=== PATIENT | male | born 1990 ===

== ENCOUNTER 2018-11-10 15:36 | Inpatient (IN) | payer OTHER ==
[2018-11-10] MEDS ORDERED: Labetalol 5mg/ml (4ml) IVP STA ×2 (16:20→18:49)
--- NOTE | 2018-11-10 16:26 | ED PDOC ---
HPI: Hypertension/Hypotension Time Seen by Provider: 11/10/18 15:55 Chief Complaint (Nursing): Abnormal Skin Integrity Additional Complaint(s): Pt is a 28 y/o M with hx of HTN and ESRD on HD presenting to ED with complaints of generalized edema. Reports that he received dialysis yesterday and his brother noticed his face was swollen. He denies any sob, throat itchiness, skin rashes, difficulty swallowing, toothache, headache, blurry vision, numbness/tingling, cp, confusion, palpitations, hematuria or recent illness. States he has been complaint with his HD (last session was yesterday) and his bp medication. PMD: Dr. Myers, [place] PMHX: ESRD< HTN SHx: AVF creation Allergies: Denies any food or drug allergies Social: negative x3 Past Medical History Vital Signs: Last Vital Signs Temp 98.1 F 11/10/18 15:49 Pulse 80 11/10/18 15:49 Resp 16 11/10/18 15:49 BP 217/135 H 11/10/18 15:49 Pulse Ox 98 11/10/18 15:49 - Medical History PMH: HTN - Family History Family History: States: No Known Family Hx - Home Medications Home Medications: Ambulatory Orders Medication Instructions Recorded RX: Atenolol [Tenormin] 50 mg PO MWF 11/10/18 RX: NIFEdipine ER [Procardia XL] 90 mg PO DAILY 11/10/18 - Allergies Allergies/Adverse Reactions: Allergies Allergy/AdvReac Type Severity Reaction Status Date / Time No Known Allergies Allergy Verified 11/10/18 16:10 Review of Systems Constitutional: Negative for: Fever, Chills Eyes: Negative for: Vision Change Cardiovascular: Negative for: Chest Pain, Palpitations Respiratory: Negative for: Cough, Shortness of Breath Gastrointestinal: Negative for: Nausea, Vomiting, Abdominal Pain Genitourinary Male: Negative for: Dysuria Musculoskeletal: Negative for: Neck Pain Neurological: Negative for: Weakness, Numbness, Change in Speech, Confusion Psych: Negative for: Anxiety Physical Exam - Physical Exam Appears: Positive for: No Acute Distress (Comfortable appearing male, seen lying in bed w/o distress, cooeprative with exam; noted to have mild generalized edema of face, arms, and lower extremities) Head Exam: Positive for: ATRAUMATIC Skin: Positive for: Normal Color Eye Exam: Positive for: Normal appearance, EOMI, PERRL ENT: Positive for: Normal ENT Inspection. Negative for: Pharyngeal Erythema, Tonsillar Swelling Neck: Positive for: Normal, Painless ROM, Supple Cardiovascular/Chest: Positive for: Regular Rate, Rhythm. Negative for: Chest Non Tender, JVD Respiratory: Positive for: Normal Breath Sounds. Negative for: Decreased Breath Sounds, Accessory Muscle Use, Crackles, Rales, Wheezing, Respiratory Distress Gastrointestinal/Abdominal: Positive for: Normal Exam, Bowel Sounds, Soft. Negative for: Tenderness Extremity: Positive for: Pedal Edema (+1 pitting up to ankles) Neurologic/Psych: Positive for: Alert, fan mail editor II-XII, Oriented. Negative for: Motor/Sensory Deficits, Facial Droop - Laboratory Results Result Diagrams: 11/10/18 16:41 11/10/18 16:41 - ECG O2 Sat by Pulse Oximetry: 98 Medical Decision Making Medical Decision Making: Pt with ESRD presenting with generalized edema and elevated BP. Need to rule out HTN emergency. Generalized edema likely due to underlying kidney disease and associated nephropathy. No concerning features on exam. EKG- no ischemic changes or peaked t waves Troponin- neagtive x1 CBC BMP- K 6.0, Crea 6.8 (no prior baseline studies) Labatelol 10mg IV Insulin 10IV, D50, Bicarb, Albuterol 5, and Kayexelate Nephrology Consulted- Dr. Spence Pt endorsed to Dr. Bowser Disposition - Clinical Impression Clinical Impression: Hyperkalemia, ESRD (end stage renal disease), Hypertensive urgency - Patient ED Disposition Is Patient to be Admitted: Yes - Disposition Disposition Time: 19:00 Condition: FAIR
[2018-11-10] MEDS ORDERED: Labetalol 5mg/ml (4ml) ONE ×2 (16:28→18:52)
[2018-11-10 16:44] LABS: HEMOGLOBIN 10.8 g/dL (12.0-18.0); MEAN CELL VOLUME 89.7 fl (80.0-94.0); MEAN CORPUSCULAR HEMOGLOBIN 28.1 pg (27.0-31.0); MEAN CORPUSCULAR HGB CONC 31.3 g/dL (33.0-37.0); RBC 3.84 Mil/uL (4.40-5.90); RED CELL DISTRIBUTION WIDTH 17.3 % (11.5-14.5); WHITE BLOOD COUNT 8.6 K/uL (4.8-10.8)
[2018-11-10 16:55] LABS: CALCIUM 9.5 mg/dL (8.4-10.2)
[2018-11-10] MEDS ORDERED: Dextrose 50% SYRINGE Inj (50 ml) IVP ONE (17:03)
[2018-11-10] MEDS ORDERED: Sodium Bicarbonate 7.5% (0.9 MEQ/ML) 50ML INJ IV ONE (17:03)
[2018-11-10] MEDS ORDERED: Albuterol 0.083% Inhal Sol (2.5 mg/3 mL) UD INH STA (17:03)
[2018-11-10] MEDS ORDERED: Insulin Regular 100 units/ml IV ONE (17:04)
[2018-11-10 17:06] LABS: TROPONIN I 0.016 ng/mL (0.00-0.120)
[2018-11-10] MEDS ORDERED: Albuterol 0.083% Inhal Sol (2.5 mg/3 mL) UD ONE (17:15)
[2018-11-10] MEDS ORDERED: Dextrose 50% SYRINGE Inj (50 ml) ONE (17:15)
[2018-11-10] MEDS ORDERED: Insulin Regular 100 units/ml ONE (17:15)
[2018-11-10] MEDS ORDERED: Sodium Bicarbonate (8.4%) 50 Meq Syringe IV ONE (17:30)
[2018-11-10] MEDS ORDERED: Sodium Bicarbonate (8.4%) 50 Meq Syringe ONE (17:44)
[2018-11-10] MEDS ORDERED: NIFEdipine 90 mg ER Tab PO STA (20:28)
[2018-11-10] MEDS ORDERED: Nicardipine 20 MG/200 ML 20 MG/200 ML BAG IV ONE (23:46)
--- NOTE | 2018-11-11 00:24 | CP.PCM.HP ---
History of Present Illness - History of Present Illness History of Present Illness: 28 yo M with hx of HTN and ESRD on HD M/W/, presented to ED with concern of swelling of his face when he drinks water over the course of 1 mo. Patient states that swelling is not present all the time and does away after dialysis. He states he is compliant with his antihypertensive medications and adherent to HD schedule; goes to [facility] on [address] in [place]; reports that he had HD yesterday. Reports that his systolic blood pressure normally runs in 170s and he is unsure of diastolic value; refers to them as "top and bottom" numbers. He denied specific discomfort; denied headache, dizziness, blurred vision, weakness, shortness of breath, chest pain, abdominal pain, diarrhea, constipation, dysuria (able to make small amounts of urine), throat pain, rashes, difficulty swallowing, toothache, numbness/tingling, recent illness. 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 Mcclellan, [place] Past Med hx: ESRD, HTN Past Surg hx: AVF creation Social hx: former heavy smoker and drinker (prior to HD initiation 4 yrs ago), denies current use; no drug use Allergies: NKA Medications: Atenolol 50 mg MWF, Nifedipine ER 90 mg QHS; does not appear to be on any renal supplement medications In ED, was found to have BP 217/135 at triage. Other vitals: HR 76, RR 21, O2 sat 96% on room air, afebrile. On CMP, hyperkalemia with K of 6.0, BUN 55, Cr 6.8. Received total of: Labetalol 10mg IV x 2 Hydralazine 10 IV mg x1 Atenolol 50 mg PO x1 Nidfedipine ER PO 90 mg x1 10U insulin IV x1 5 mg albuterol INH Kayexalate 30 gm PO x1 Sodium Bicarb 50mEq IV x1 EKG- no ischemic changes or peaked t waves Troponin- negative x1 BP remained high; when seen in ED around 23:45, BP was still 185/116. Nifedipine drip ordered at 5 mg/hr Upgraded to ICU admission Present on Admission - Present on Admission Any Indicators Present on Admission: No Past Patient History - Past Social History Smoking Status: Never Smoked - CARDIAC Hx Hypertension: Yes - RENAL Hx Dialysis: Yes Date of Last Dialysis Treatment: 11/09/18 - PSYCHIATRIC Hx Substance Use: No - SURGICAL HISTORY Hx Surgeries: Yes Hx Arteriovenous Shunt: Yes - ANESTHESIA Hx Anesthesia: Yes Hx Anesthesia Reactions: No Meds Allergies/Adverse Reactions: Allergies Allergy/AdvReac Type Severity Reaction Status Date / Time No Known Allergies Allergy Verified 11/10/18 16:10 Physical Exam - Constitutional Appears: Non-toxic, No Acute Distress - Head Exam Head Exam: NORMAL INSPECTION - Eye Exam Eye Exam: Normal appearance - Neck Exam Neck exam: Positive for: Full Rom - Respiratory Exam Respiratory Exam: Clear to Auscultation Bilateral, NORMAL BREATHING PATTERN. absent: Wheezes, Respiratory Distress - Cardiovascular Exam Cardiovascular Exam: REGULAR RHYTHM, +S1, +S2 - GI/Abdominal Exam GI & Abdominal Exam: Normal Bowel Sounds, Soft - Extremities Exam Extremities exam: Negative for: calf tenderness, pedal edema Additional comments: LUE AV fistula; palpable thrill - Back Exam Back exam: NORMAL INSPECTION - Neurological Exam Neurological exam: Alert, Oriented x3 - Psychiatric Exam Psychiatric exam: Normal Affect, Normal Mood - Skin Skin Exam: Dry, Normal Color, Warm - Additional Findings Additional findings: no marked edema noted on exam Results - Vital Signs Recent Vital Signs: Last Vital Signs Temp 98.8 F 11/10/18 21:36 Pulse 77 11/10/18 21:36 Resp 20 11/10/18 21:36 BP 164/111 H 11/10/18 21:36 Pulse Ox 97 11/10/18 21:36 - Labs Result Diagrams: 11/10/18 16:41 11/11/18 00:40 Labs: Laboratory Results - last 24 hr 11/10/18 11/10/18 16:41 16:41 WBC 8.6 RBC 3.84 L Hgb 10.8 L Hct 34.5 L MCV 89.7 MCH 28.1 MCHC 31.3 L RDW 17.3 H Plt Count 184 Sodium 139 Potassium 6.0 H Chloride 91 L Carbon Dioxide 30 Anion Gap 24 H BUN 55 H Creatinine 6.8 H Est GFR ( Amer) 12 Est GFR (Non-Af Amer) 10 Random Glucose 78 Calcium 9.5 Troponin I 0.0160 Assessment & Plan - Assessment and Plan (Free Text) Assessment: 28 yo M with ESRD (HD M,W,F) and hypertension who presented to ED with concern f or edema; admitted for uncontrolled BP despite treatment with multiple IV and PO agents (labetalol, nifedipine, atenolol, hydralazine) and hyperkalemia. Plan: Hypertension - Uncontrolled - Nicardipine drip started at 5 mg/hr, upgraded to ICU obs; goal 25% reduction in BP at this time - Continuous monitoring of BP - Resume home meds nifedipine and atenolol Hyperkalemia - s/p 30 gm kayexalate and 50 mEq sodium bicarb - Repeat BMP now and in am - Due for HD tomorrow ESRD - HD MWF, due for HD tomorrow - Dr. Spence, nephro consulted Diet - Renal dialysis diet DVT Prophylaxis - SCD for now Pt seen/discussed with Dr. Starkey.
[2018-11-11] MEDS ORDERED: Nicardipine 20 MG/200 ML 20 MG/200 ML BAG ONE (00:28)
[2018-11-11 01:07] LABS: CALCIUM 9.5 mg/dL (8.4-10.2)
[2018-11-11 05:26] LABS: HEMOGLOBIN 10.3 g/dL (12.0-18.0); MEAN CELL VOLUME 88.4 fl (80.0-94.0); MEAN CORPUSCULAR HEMOGLOBIN 28.4 pg (27.0-31.0); MEAN CORPUSCULAR HGB CONC 32.2 g/dL (33.0-37.0); RBC 3.62 Mil/uL (4.40-5.90); RED CELL DISTRIBUTION WIDTH 17.7 % (11.5-14.5); WHITE BLOOD COUNT 10.4 K/uL (4.8-10.8)
[2018-11-11 05:52] LABS: CALCIUM 9.7 mg/dL (8.4-10.2)
--- NOTE | 2018-11-11 08:03 | CP.PCM.CON ---
History of Present Illness - History of Present Illness History of Present Illness: This 28 years of age male presented to the emergency room complaining of leg swollen and swollen of his face and he noted that he is retaining water. Patient had dialysis on Friday as noted in the medical record and the patient stated so. And has been on dialysis for about 4 years. The patient has history of hypertension and he has been receiving dialysis 3 times a week Friday. And in the emergency room blood pressure systolic was around over 200 and emergency room management noted and potassium was elevated and he was given multiple medication for hyperkalemia Emergency room management and past medical history as noted as follow In ED, was found to have BP 217/135 at triage. Other vitals: HR 76, RR 21, O2 sat 96% on room air, afebrile. On CMP, hyperkalemia with K of 6.0, BUN 55, Cr 6.8. Received total of: Labetalol 10mg IV x 2 Hydralazine 10 IV mg x1 Atenolol 50 mg PO x1 Nidfedipine ER PO 90 mg x1 10U insulin IV x1 5 mg albuterol INH Kayexalate 30 gm PO x1 Sodium Bicarb 50mEq IV x1 EKG- no ischemic changes or peaked t waves Troponin- negative x1 Review of Systems - Constitutional Constitutional: Weakness. absent: Anorexia, Chills - EENT Nose/Mouth/Throat: absent: Nasal Discharge - Cardiovascular Cardiovascular: Dyspnea on Exertion, Edema, Leg Edema. absent: Chest Pain - Gastrointestinal Gastrointestinal: absent: Abdominal Pain, Coffee Ground Emesis, Nausea - Genitourinary Genitourinary: Nocturia - Musculoskeletal Musculoskeletal: Muscle Weakness. absent: Numbness - Neurological Neurological: Weakness. absent: Confusion, Focal Weakness, Headaches - Endocrine Endocrine: Fatigue - Hematologic/Lymphatic Hematologic: absent: Easy Bleeding Past Patient History - Past Medical History & Family History Past Medical History?: Yes - Past Social History Smoking Status: Never Smoked - CARDIAC Hx Hypertension: Yes - PULMONARY Hx Respiratory Disorders: No - NEUROLOGICAL Hx Neurological Disorder: No - HEENT Hx HEENT Problems: No - RENAL Hx Dialysis: Yes Date of Last Dialysis Treatment: 11/09/18 - ENDOCRINE/METABOLIC Hx Endocrine Disorders: No - HEMATOLOGICAL/ONCOLOGICAL Hx Blood Disorders: No Hx AIDS: No Hx Human Immunodeficiency Virus (HIV): No - INTEGUMENTARY Hx Dermatological Problems: No - MUSCULOSKELETAL/RHEUMATOLOGICAL Hx Musculoskeletal Disorders: No Hx Falls: No - GASTROINTESTINAL Hx Gastrointestinal Disorders: No - GENITOURINARY/GYNECOLOGICAL Hx Genitourinary Disorders: No - PSYCHIATRIC Hx Substance Use: No - SURGICAL HISTORY Hx Surgeries: Yes Hx Arteriovenous Shunt: Yes - ANESTHESIA Hx Anesthesia: Yes Hx Anesthesia Reactions: No Meds Allergies/Adverse Reactions: Allergies Allergy/AdvReac Type Severity Reaction Status Date / Time No Known Allergies Allergy Verified 11/10/18 16:10 - Medications Medications: Current Medications Atenolol (Tenormin) 50 mg PO MWF [facility] Nifedipine (Procardia Xl) 90 mg PO DAILY@2100 [facility] Physical Exam - Constitutional Appears: No Acute Distress - Eye Exam Eye Exam: Conjunctival injection - ENT Exam ENT Exam: Mucous Membranes Moist - Neck Exam Neck exam: Negative for: Lymphadenopathy - Respiratory Exam Respiratory Exam: Rhonchi, NORMAL BREATHING PATTERN - Cardiovascular Exam Cardiovascular Exam: REGULAR RHYTHM. absent: Gallop, JVD, Rubs - GI/Abdominal Exam GI & Abdominal Exam: Normal Bowel Sounds. absent: Guarding - Extremities Exam Extremities exam: Negative for: calf tenderness - Back Exam Back exam: absent: CVA tenderness (L), CVA tenderness (R) - Neurological Exam Neurological exam: Alert - Psychiatric Exam Psychiatric exam: Normal Affect Results - Vital Signs Recent Vital Signs: Last Vital Signs Temp 98.2 F 11/11/18 05:00 Pulse 64 11/11/18 07:00 Resp 20 11/11/18 07:00 BP 132/89 11/11/18 07:00 Pulse Ox 94 L 11/11/18 07:00 - Labs Result Diagrams: 11/11/18 04:35 11/11/18 04:35 Labs: Laboratory Results - last 24 hr 11/10/18 11/10/18 11/11/18 16:41 16:41 00:40 WBC 8.6 RBC 3.84 L Hgb 10.8 L Hct 34.5 L MCV 89.7 MCH 28.1 MCHC 31.3 L RDW 17.3 H Plt Count 184 Sodium 139 138 Potassium 6.0 H 5.8 H Chloride 91 L 90 L Carbon Dioxide 30 28 Anion Gap 24 H 26 H BUN 55 H 60 H Creatinine 6.8 H 8.1 H* Est GFR ( Amer) 12 9 Est GFR (Non-Af Amer) 10 8 Random Glucose 78 88 Calcium 9.5 9.5 Troponin I 0.0160 11/11/18 11/11/18 04:35 04:35 WBC 10.4 RBC 3.62 L Hgb 10.3 L Hct 32.0 L MCV 88.4 MCH 28.4 MCHC 32.2 L RDW 17.7 H Plt Count 201 Sodium 137 Potassium 5.9 H Chloride 90 L Carbon Dioxide 30 Anion Gap 23 H BUN 64 H Creatinine 8.4 H* Est GFR ( Amer) 9 Est GFR (Non-Af Amer) 8 Random Glucose 83 Calcium 9.7 Troponin I Assessment & Plan (1) ESRD (end stage renal disease) Assessment and Plan: Patient with end-stage renal disease for 4 years Hypertension Hyperkalemia Volume overloaded History of hyperphosphatemia History of secondary hyperparathyroidism Recommendation Urgent hemodialysis To get serum phosphorus and PTH level Diet instruction for compliance with the fluid Renal diet Phosphorus binder EPO for the anemia Status: Acute (2) Hyperkalemia Status: Acute (3) Hypertensive urgency Status: Acute
--- NOTE | 2018-11-11 08:36 | RAD ---
Date of service: 11/11/2018 PROCEDURE: CHEST RADIOGRAPH, 1 VIEW HISTORY: smoker COMPARISON: 09/23/2011 chest x-ray. No report is available. FINDINGS: LUNGS: Compared to the prior study the coalescent airspace opacities inferred as coalescent areas of pulmonary edema and/or coalescing pneumonia have cleared. Interval change in the appearance of the right hemithorax now with homogeneous ground-glass opacity present additional patchy areas of concomitant airspace opacity right upper lobe. An interval right pleural effusion-possibly in part loculated is noted. Right basal inferred compressive atelectasis with or without infiltrate noted. Minimal fluid and/or thickening in the fissure. PLEURA: No pneumothorax seen. Right pleural effusion as above. CARDIOVASCULAR: There is presence of aortic atherosclerotic calcification on x-ray. Mild cardiomegaly.-similar-appearing. Central pulmonary venous congestion also suspect. OSSEOUS STRUCTURES: No significant abnormalities. VISUALIZED UPPER ABDOMEN: Normal. OTHER FINDINGS: None. IMPRESSION: Interval changes as above. Currently the pathology is accentuated in the right hemithorax where right pleural effusion and inferred right basal compressive atelectasis (with or without infiltrate) is suggested. Right pleural effusion probably has some loculated components to it which is an interval change. Other findings as above. Comments: Study marked for PA review .
--- NOTE | 2018-11-11 09:58 | CARD ---
APPROVED REPORT Date of service: 11/10/2018 EKG Measurement Heart [id number] <Conclusion> Normal sinus rhythm Normal Electrocardiogram
--- NOTE | 2018-11-11 10:36 | CP.PCM.PN ---
Subjective - Date & Time of Evaluation Date of Evaluation: 11/11/18 Time of Evaluation: 10:34 - Subjective Subjective: Dialysis note He was seen on hemodialysis after 1 hour plus Patient appears to be comfortable on hemodialysis Vital signs noted to be stable I discussed the dialysis order with the dialysis nurse at the bedside Decreasing shortness of breath Objective - Vital Signs/Intake and Output Vital Signs (last 24 hours): Temp Pulse Resp BP Pulse Ox 98.7 F 69 24 143/92 H 95 11/11/18 08:00 11/11/18 09:00 11/11/18 09:00 11/11/18 09:00 11/11/18 09:00 Intake and Output: 11/11/18 11/11/18 06:59 18:59 Intake Total 60 Balance 60 - Medications Medications: Current Medications Atenolol (Tenormin) 50 mg PO MWF [facility] Nifedipine (Procardia Xl) 90 mg PO DAILY@2100 RYDER - Labs Labs: 11/11/18 04:35 11/11/18 04:35 - Constitutional Appears: No Acute Distress - Eye Exam Eye Exam: Conjunctival injection - ENT Exam ENT Exam: Mucous Membranes Moist - Neck Exam Neck Exam: absent: Lymphadenopathy - Cardiovascular Exam Cardiovascular Exam: REGULAR RHYTHM. absent: Gallop - GI/Abdominal Exam GI & Abdominal Exam: Soft, Normal Bowel Sounds - Extremities Exam Extremities Exam: absent: Calf Tenderness - Back Exam Back Exam: absent: CVA tenderness (L), CVA tenderness (R) - Neurological Exam Neurological Exam: Alert - Psychiatric Exam Psychiatric exam: Anxious - Skin Skin Exam: absent: Cyanosis Assessment and Plan (1) ESRD (end stage renal disease) Assessment & Plan: End-stage renal disease Volume overloaded Hypertension Hemodialysis ongoing with ultrafiltration up to about 3000 cc if tolerated Consent was taken and discussed with the dialysis nurse at the bedside patient is stable Status: Acute (2) Hyperkalemia Status: Acute (3) Hypertensive urgency Status: Acute
--- NOTE | 2018-11-11 12:40 | CP.PCM.PN ---
Objective - Vital Signs/Intake and Output Vital Signs (last 24 hours): Temp Pulse Resp BP Pulse Ox 98.3 F 72 24 164/100 H 96 11/11/18 12:00 11/11/18 12:36 11/11/18 12:00 11/11/18 12:36 11/11/18 12:00 Intake and Output: 11/11/18 11/11/18 06:59 18:59 Intake Total 60 Balance 60 - Medications Medications: Current Medications Atenolol (Tenormin) 50 [place] [facility] [place] Admin: 11/11/18 12:36 Dose: 50 mg Nifedipine (Procardia Xl) 90 mg PO DAILY@2100 [facility] - Labs Labs: 11/11/18 04:35 11/11/18 04:35
[2018-11-11 13:18] LABS: INR 1.3; PROTHROMBIN TIME 14.6 Seconds (9.8-13.1)
[2018-11-11 13:49] LABS: HEPATITIS B SURFACE AG Negative (NEGATIVE)
[2018-11-11 13:54] LABS: HEPATITIS B CORE AB NEGATIVE (NEGATIVE)
[2018-11-11 14:07] LABS: HEPATITIS C ANTIBODY NEGATIVE (NEGATIVE)
[2018-11-11] MEDS ORDERED: Lidocaine 1% Inj (20ml) ONE (14:10)
--- NOTE | 2018-11-11 14:14 | CT ---
Date of service: 11/11/2018 PROCEDURE: CT Chest without contrast HISTORY: large pleural effusion COMPARISON: 09/22/2011 TECHNIQUE: Contiguous axial images were obtained through the chest without intravenous contrast enhancement. Sagittal and coronal reconstructions were performed. Radiation dose (DLP): 190.64 mGy-cm. This CT exam was performed using one or more of the following dose reduction techniques: Automated exposure control, adjustment of the mA and/or kV according to patient size, and/or use of iterative reconstruction technique. FINDINGS: LUNGS: No pulmonary infiltrate. Right upper lobe and right lower lobe segmental/subsegmental atelectasis secondary to large pleural effusion. Minimal linear scar/atelectasis in left lower lobe. Trace left pleural effusion. No pneumothorax. MEDIASTINUM: Unremarkable thoracic aorta. No aneurysm. Normal sized heart. Main pulmonary artery unremarkable. No vascular congestion. No lymphadenopathy. No aortic atherosclerotic calcification or mural plaque present. PLEURA: No pleural fluid. No pneumothorax. BONES: No fracture. No destructive lesion. UPPER ABDOMEN: Mild ascites OTHER FINDINGS: None. IMPRESSION: Large right pleural effusion and trace left pleural effusion. Mild ascites. Right upper and lower lobe segmental/subsegmental atelectasis. No pulmonary infiltrate.
--- NOTE | 2018-11-11 14:20 | PCM.SURG1 ---
Surgeon's Initial Post Op Note - Surgeon's Notes Surgeon: Anibal Burnette MD Reeling And Tubing Machine Operator: NONE Type of Anesthesia: Local Pre-Operative Diagnosis: Right pleural effusion Operative Findings: US showed a large right effusion Post-Operative Diagnosis: Right pleural effusion Operation Performed: US guided right thoracentesis Specimen/Specimens Removed: 1100 cc of yellow fluid Estimated Blood Loss: EBL {In ML}: 0 Blood Products Given: N/A Drains Used: No Drains Post-Op Condition: Fair Date of Surgery/Procedure: 11/11/18 Time of Surgery/Procedure: 14:15
--- NOTE | 2018-11-11 14:39 | CT ---
PROCEDURE: Date of procedure: 11/11/2018 Procedure: 1. Ultrasound-guided Right thoracentesis, CPT 34953 Medications: 6cc 1% Lidocaine HISTORY: Right pleural effusion, shortness of breath TECHNIQUE: Following informed consent ,the Patients' right chest was marked. Procedure time-out was called, and the patient was placed in the sitting position and limited ultrasound showed a large right effusion. The patient's right back was prepped and draped in the usual sterile fashion. After the skin was anesthetized with lidocaine, a drainage catheter was advanced under ultrasound guidance into the pleural space. Ultrasound-guided thoracentesis was performed. A total of 1100 cubic centimeters of straw-colored fluid removed without complication. A Xeroform dressing was applied. IMPRESSION: Ultrasound guided Right thoracentesis. There were no immediate complications.
[2018-11-11 15:12] LABS: BODY FLUID TYPE PLEURAL/THORACENTESI
[2018-11-11 15:33] LABS: BF GROSS APPEARANCE CLEAR (CLEAR)
--- NOTE | 2018-11-11 15:40 | CP.CCUPN ---
CCU Subjective - Physician Review Events Since Last Encounter (Free Text): 11/11/18 15:31 alert and oriented, no complaints. CCU Objective - Vital Signs / Intake & Output Vital Signs (Last 4 hours): Vital Signs Temp Pulse Resp BP Pulse Ox 11/11/18 14:26 97.6 F 64 20 152/100 H 94 L 11/11/18 12:36 72 164/100 H 11/11/18 12:00 98.3 F 66 24 167/103 H 96 Intake and Output (Last 8hrs): Intake & Output 11/11/18 11/11/18 11/11/18 06:59 14:59 22:59 Intake Total 60 Balance 60 Weight 118 lb Intake: IV 0 Oral 60 - Physical Exam Head: Positive for: Atraumatic, Normocephalic Pupils: Positive for: PERRL Extroacular Muscles: Positive for: EOMI Conjunctiva: Positive for: Normal Mouth: Positive for: Moist Mucous Membranes Neck: Positive for: Normal Range of Motion Respiratory/Chest: Positive for: Clear to Auscultation, Good Air Exchange Cardiovascular: Positive for: Regular Rate and Rhythm Abdomen: Negative for: Tenderness, Distention, Normal Bowel Sounds Neurological: Positive for: GCS=15, CN II-XII Intact, Speech Normal Psychiatric: Positive for: Alert, Oriented x 3 - Medications Active Medications: Active Medications Generic Name Dose Route Start Last Admin Trade Name Freq PRN Reason Stop Dose Admin Atenolol 50 mg 11/11/18 09:00 11/11/18 12:36 Tenormin PO 50 mg MWF [facility] Administration Nifedipine 90 mg 11/11/18 21:00 Procardia Xl PO DAILY@2100 [facility] Sevelamer HCl 800 mg 11/11/18 13:00 11/11/18 13:09 Renagel PO Not Given TID RYDER - Patient Studies Lab Studies: Lab Studies 11/11/18 11/11/18 11/11/18 Range/Units 15:00 12:56 09:11 WBC (4.8-10.8) K/uL RBC (4.40-5.90) Mil/uL Hgb (12.0-18.0) g/dL Hct (35.0-51.0) % MCV (80.0-94.0) fl MCH (27.0-31.0) pg MCHC (33.0-37.0) g/dL RDW (11.5-14.5) % Plt Count (130-400) K/uL PT 14.6 H (9.8-13.1) Seconds INR 1.3 Sodium (132-148) mmol/l Potassium (3.6-5.0) MMOL/L Chloride (98-107) mmol/L Carbon Dioxide (22-30) mmol/L Anion Gap (10-20) BUN (9-20) mg/dl Creatinine (0.8-1.5) mg/dl Est GFR ( Amer) Est GFR (Non-Af Amer) Random Glucose (75-110) mg/dL Calcium (8.4-10.2) mg/dL Phosphorus (2.5-4.5) mg/dl Magnesium (1.6-2.3) MG/DL Troponin I (0.00-0.120) ng/mL Fluid Source Pleural/thoracentesi Hep Bs Antigen (NEGATIVE) Hep Bs Antibody Positive (NEGATIVE) Hep B Core IgM Ab (NEGATIVE) Hepatitis C Antibody (NEGATIVE) 11/11/18 11/11/18 11/11/18 Range/Units 09:11 04:35 04:35 WBC 10.4 (4.8-10.8) K/uL RBC 3.62 L (4.40-5.90) Mil/uL Hgb 10.3 L (12.0-18.0) g/dL Hct 32.0 L (35.0-51.0) % MCV 88.4 (80.0-94.0) fl MCH 28.4 (27.0-31.0) pg MCHC 32.2 L (33.0-37.0) g/dL RDW 17.7 H (11.5-14.5) % Plt Count 201 (130-400) K/uL PT (9.8-13.1) Seconds INR Sodium 137 (132-148) mmol/l Potassium 5.9 H (3.6-5.0) MMOL/L Chloride 90 L (98-107) mmol/L Carbon Dioxide 30 (22-30) mmol/L Anion Gap 23 H (10-20) BUN 64 H (9-20) mg/dl Creatinine 8.4 H* (0.8-1.5) mg/dl Est GFR ( Amer) 9 Est GFR (Non-Af Amer) 8 Random Glucose 83 (75-110) mg/dL Calcium 9.7 (8.4-10.2) mg/dL Phosphorus 6.5 H (2.5-4.5) mg/dl Magnesium 2.3 (1.6-2.3) MG/DL Troponin I (0.00-0.120) ng/mL Fluid Source Hep Bs Antigen Negative (NEGATIVE) Hep Bs Antibody (NEGATIVE) Hep B Core IgM Ab Negative (NEGATIVE) Hepatitis C Antibody Negative (NEGATIVE) 11/11/18 11/10/18 11/10/18 Range/Units 00:40 16:41 16:41 WBC 8.6 (4.8-10.8) K/uL RBC 3.84 L (4.40-5.90) Mil/uL Hgb 10.8 L (12.0-18.0) g/dL Hct 34.5 L (35.0-51.0) % MCV 89.7 (80.0-94.0) fl MCH 28.1 (27.0-31.0) pg MCHC 31.3 L (33.0-37.0) g/dL RDW 17.3 H (11.5-14.5) % Plt Count 184 (130-400) K/uL PT (9.8-13.1) Seconds INR Sodium 138 139 (132-148) mmol/l Potassium 5.8 H 6.0 H (3.6-5.0) MMOL/L Chloride 90 L 91 L (98-107) mmol/L Carbon Dioxide 28 30 (22-30) mmol/L Anion Gap 26 H 24 H (10-20) BUN 60 H 55 H (9-20) mg/dl Creatinine 8.1 H* 6.8 H (0.8-1.5) mg/dl Est GFR ( Amer) 9 12 Est GFR (Non-Af Amer) 8 10 Random Glucose 88 78 (75-110) mg/dL Calcium 9.5 9.5 (8.4-10.2) mg/dL Phosphorus (2.5-4.5) mg/dl Magnesium (1.6-2.3) MG/DL Troponin I 0.0160 (0.00-0.120) ng/mL Fluid Source Hep Bs Antigen (NEGATIVE) Hep Bs Antibody (NEGATIVE) Hep B Core IgM Ab (NEGATIVE) Hepatitis C Antibody (NEGATIVE) Laboratory Results - last 24 hr 11/10/18 11/10/18 11/11/18 16:41 16:41 00:40 WBC 8.6 RBC 3.84 L Hgb 10.8 L Hct 34.5 L MCV 89.7 MCH 28.1 MCHC 31.3 L RDW 17.3 H Plt Count 184 PT INR Sodium 139 138 Potassium 6.0 H 5.8 H Chloride 91 L 90 L Carbon Dioxide 30 28 Anion Gap 24 H 26 H BUN 55 H 60 H Creatinine 6.8 H 8.1 H* Est GFR ( Amer) 12 9 Est GFR (Non-Af Amer) 10 8 Random Glucose 78 88 Calcium 9.5 9.5 Phosphorus Magnesium Troponin I 0.0160 Fluid Source Hep Bs Antigen Hep Bs Antibody Hep B Core IgM Ab Hepatitis C Antibody 11/11/18 11/11/18 11/11/18 04:35 04:35 09:11 WBC 10.4 RBC 3.62 L Hgb 10.3 L Hct 32.0 L MCV 88.4 MCH 28.4 MCHC 32.2 L RDW 17.7 H Plt Count 201 PT INR Sodium 137 Potassium 5.9 H Chloride 90 L Carbon Dioxide 30 Anion Gap 23 H BUN 64 H Creatinine 8.4 H* Est GFR ( Amer) 9 Est GFR (Non-Af Amer) 8 Random Glucose 83 Calcium 9.7 Phosphorus 6.5 H Magnesium 2.3 Troponin I Fluid Source Hep Bs Antigen Negative Hep Bs Antibody Hep B Core IgM Ab Negative Hepatitis C Antibody Negative 11/11/18 11/11/18 11/11/18 09:11 12:56 15:00 WBC RBC Hgb Hct MCV MCH MCHC RDW Plt Count PT 14.6 H INR 1.3 Sodium Potassium Chloride Carbon Dioxide Anion Gap BUN Creatinine Est GFR ( Amer) Est GFR (Non-Af Amer) Random Glucose Calcium Phosphorus Magnesium Troponin I Fluid Source Pleural/thoracentesi Hep Bs Antigen Hep Bs Antibody Positive Hep B Core IgM Ab Hepatitis C Antibody Radiology Impressions: Radiology Impressions Chest X-Ray 11/11/18 07:44 IMPRESSION: Interval changes as above. Currently the pathology is accentuated in the right hemithorax where right pleural effusion and inferred right basal compressive atelectasis (with or without infiltrate) is suggested. Right pleural effusion probably has some loculated components to it which is an interval change. Other findings as above. Comments: Study marked for PA review . Chest CT 11/11/18 12:34 IMPRESSION: Large right pleural effusion and trace left pleural effusion. Mild ascites. Right upper and lower lobe segmental/subsegmental atelectasis. No pulmonary infiltrate. Interventional Procedure 11/11/18 12:36 IMPRESSION: Ultrasound guided Right thoracentesis. There were no immediate complications. Review of Systems - Review of Systems All systems: reviewed and no additional remarkable complaints except (no complaints) Critical Care Progress Note - Nutrition Nutrition: Nutrition Category Date Time Status Renal Diet [DIET] Diets 11/11/18 Breakfast Active Assessment/Plan (1) ESRD (end stage renal disease) Assessment and plan: 28yo M. PMHx ESRD (HD M,W,F) and hypertension who presented to ED with concern for edema; admitted for uncontrolled BP despite treatment with multiple IV and PO agents (labetalol, nifedipine, atenolol, hydralazine) and hyperkalemia. Neuro: alert and oriented. Patient's liver size and drinking history is indicative of etoh abuse, at risk for withdrawal, will monitor. Pulm: no acute issues, breathing spontaneously on room air. 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 CV: hemodynamically stable. patient's edema and facial swelling could be fluid overload from excess drinking or a side effect of his calcium channel jennifer, will monitor. Hem: anemia of chronic disease Renal: ESRD on HD (MWF), got dialyzed today, 2.5L removed. Endo: no acute issues. GI: renal diet ID: no acute issues. monitor for pneumonia, as patient has remaining atelectatic lung s/p thoracentesis. DVT proph - heparin sq GI proph - not currently indicated Code status - full code Critical Care time spent 35 minutes Multi-disciplinary rounds were performed with house staff, nursing, speech t herapy, respiratory therapy, pharmacy and nutrition with integrated input from the primary team/attending and other consulting services. The documented time is cumulative and includes review of patient data/exams/labs/chart review and examination of the patient on rounds and throughout the day; time is exclusive of any procedures or teaching time. Current Visit: No Status: Acute
[2018-11-11 16:03] LABS: BODY FLUID MONO/MACROPHAGE 17 % (0-0); BODY FLUID TOTAL COUNT 100 (0-0)
[2018-11-11 16:51] LABS: TOTAL PROTEIN,BODY FLUID 2.6 g/dL (NONE ESTABLISHED)
--- NOTE | 2018-11-11 17:08 | RAD ---
Date of service: 11/11/2018 PROCEDURE: CHEST RADIOGRAPH, 1 VIEW HISTORY: Status post right thoracentesis. COMPARISON: 11/11/2018 at 7:52 a.m. FINDINGS: LUNGS: Is decreased opacity right upper and lower lung likely due to decrease in extent of dependent pleural fluid seen on prior examination. No acute infiltrate. PLEURA: Small right pleural effusion. No left pleural effusion. No pneumothorax appreciated. Is CARDIOVASCULAR: No aortic atherosclerotic calcification present. Normal. OSSEOUS STRUCTURES: No significant abnormalities. VISUALIZED UPPER ABDOMEN: Normal. OTHER FINDINGS: None. IMPRESSION: Small right pleural effusion. Decreased from earlier examination. No infiltrate.
--- NOTE | 2018-11-11 19:40 | CARD ---
APPROVED REPORT Date of service: 11/11/2018 EXAM: Two-dimensional and M-mode echocardiogram with Doppler and color Doppler. Other Information Quality : ExcellentRhythm : NSR INDICATION RV Failure 2D DIMENSIONS IVSd1.35 (0.7-1.1cm)LVDd4.62 (3.9-5.9cm) LVOT Diameter1.64 (1.8-2.4cm)PWd1.52 (0.7-1.1cm) IVSs1.73 (0.8-1.2cm)LVDs3.32 (2.5-4.0cm) FS (%) 28.3 %PWs1.78 (0.8-1.2cm) M-Mode DIMENSIONS Left Atrium (MM)4.60 (2.5-4.0cm)IVSd1.35 (0.7-1.1cm) Aortic Root2.70 (2.2-3.7cm)LVDd4.33 (4.0-5.6cm) Aortic Cusp Exc.1.74 (1.5-2.0cm)PWd1.46 (0.7-1.1cm) IVSs1.68 cmFS (%) 21 % LVDs3.42 (2.0-3.8cm)PWs1.68 cm Aortic Valve AoV Peak Lqkrkpbj621.0cm/sAoV VTI28.9cmAO Peak GR.14mmHg LVOT Peak Vgwsyhex292.8cm/sLVOT VTI24.31cmAO Mean GR.8mmHg APRIL (VMAX)1.69ub8JHN (VTI)1.17cm2 Mitral Valve MV E Gjsfrats409.1cm/sMV DECEL [id number] A Ulveolup46.4cm/s MV IJK84stH/A ratio2.0MVA (PHT)4.07cm2 TDI Lateral E' Peak V11.16cm/sMedial E' Peak V5.95cm/sE/Lateral E'9.1 E/Medial E'17.0 Tricuspid Valve TR Peak Vxwugqqo303gm/sRAP [id number] Peak Gr.23mmHg TQUI42rhTt LEFT VENTRICLE The left ventricle is normal size. There is mild concentric left ventricular hypertrophy. The left ventricular systolic function is normal. The estimated ejection fraction is 50-55% No regional wall motion abnormalities noted.. The left ventricular diastolic function is normal. No left ventricle thrombus noted on this study. There is no ventricular septal defect visualized. There is no left ventricular aneurysm. There is no mass noted in the left ventricle. RIGHT VENTRICLE The right ventricle is normal size. There is mild right ventricular hypertrophy. The right ventricular systolic function is normal. ATRIA The left atrium is moderately dilated. The right atrium size is normal. The interatrial septum is intact with no evidence for an atrial septal defect. AORTIC VALVE The aortic valve is normal in structure. No aortic regurgitation is present. There is no aortic valvular stenosis. There is no aortic valvular vegetation. MITRAL VALVE The mitral valve is normal in structure. There is no evidence of mitral valve prolapse. There is no mitral valve stenosis. There is trace mitral valve regurgitation noted. TRICUSPID VALVE The tricuspid valve is normal in structure. There is severe tricuspid valve regurgitation noted. RVSP is likely underestimated at 28 mm Hg. Consider further work up. There is no tricuspid valve prolapse or vegetation. There is no tricuspid valve stenosis. PULMONIC VALVE The pulmonary valve is normal in structure. There is no pulmonic valvular regurgitation. There is no pulmonic valvular stenosis. GREAT VESSELS The aortic root is normal in size. The ascending aorta is normal in size. The pulmonary artery is normal. The IVC is normal in size and collapses >50% with inspiration. PERICARDIAL EFFUSION There is a trace pericardial effusion. There is no pleural effusion. <Conclusion> There is mild concentric left ventricular hypertrophy. The estimated ejection fraction is 50-55% The left ventricular diastolic function is likely normal. There is mild right ventricular hypertrophy. The left atrium is moderately dilated. There is trace mitral valve regurgitation noted. There is severe tricuspid valve regurgitation noted. RVSP is likely underestimated at 28 mm Hg. Consider further work up.
[2018-11-11] MEDS ORDERED: NIFEdipine 90 mg ER Tab PO SCH (21:00)
[2018-11-11 21:13] LABS: HEMOGLOBIN 10.1 g/dL (12.0-18.0); MEAN CELL VOLUME 88.9 fl (80.0-94.0); MEAN CORPUSCULAR HGB CONC 31.5 g/dL (33.0-37.0); RBC 3.61 Mil/uL (4.40-5.90); RED CELL DISTRIBUTION WIDTH 17.5 % (11.5-14.5); WHITE BLOOD COUNT 6.4 K/uL (4.8-10.8)
[2018-11-12 05:31] LABS: HEMOGLOBIN 10.3 g/dL (12.0-18.0); MEAN CELL VOLUME 90.1 fl (80.0-94.0); MEAN CORPUSCULAR HEMOGLOBIN 28.2 pg (27.0-31.0); MEAN CORPUSCULAR HGB CONC 31.3 g/dL (33.0-37.0); RBC 3.63 Mil/uL (4.40-5.90); RED CELL DISTRIBUTION WIDTH 17.4 % (11.5-14.5); WHITE BLOOD COUNT 7.2 K/uL (4.8-10.8)
[2018-11-12 05:56] LABS: ALBUMIN 3.5 g/dL (3.5-5.0); CALCIUM 9.9 mg/dL (8.4-10.2)
[2018-11-12 07:48] VITALS: O2SAT 97
--- NOTE | 2018-11-12 10:10 | CP.PCM.PN ---
Subjective - Date & Time of Evaluation Date of Evaluation: 11/12/18 Time of Evaluation: 10:09 - Subjective Subjective: Patient feeling much better Shortness of breath No chest pain Vital signs stable Objective - Vital Signs/Intake and Output Vital Signs (last 24 hours): Temp Pulse Resp BP Pulse Ox 97.5 F L 97 H 14 145/96 H 97 11/12/18 07:45 11/12/18 07:45 11/12/18 07:45 11/12/18 07:45 11/12/18 07:45 Intake and Output: 11/12/18 11/12/18 06:59 18:59 Intake Total 120 30 Balance 120 30 - Medications Medications: Current Medications Atenolol (Tenormin) 50 mg PO MWF [facility] Last Admin: 11/11/18 12:36 Dose: 50 mg Heparin Sodium (Porcine) (Heparin) 5,000 units SC Q12 [facility]; Protocol Last Admin: 11/12/18 08:45 Dose: 5,000 units Nifedipine (Procardia Xl) 90 mg PO DAILY@2100 [facility] Last Admin: 11/11/18 21:08 Dose: 90 mg Sevelamer Carbonate (Renvela) 800 mg PO TID [facility] Last Admin: 11/12/18 08:51 Dose: 800 mg - Labs Labs: 11/12/18 04:00 11/12/18 04:45 PT 14.6 Seconds (9.8-13.1) H 11/11/18 12:56 INR 1.3 11/11/18 12:56 - Constitutional Appears: No Acute Distress - Eye Exam Eye Exam: Conjunctival injection - ENT Exam ENT Exam: Mucous Membranes Moist - Neck Exam Neck Exam: absent: Lymphadenopathy - Respiratory Exam Respiratory Exam: NORMAL BREATHING PATTERN. absent: Chest Wall Tenderness - GI/Abdominal Exam GI & Abdominal Exam: Soft, Normal Bowel Sounds - Extremities Exam Extremities Exam: absent: Calf Tenderness - Back Exam Back Exam: absent: CVA tenderness (L), CVA tenderness (R) - Neurological Exam Neurological Exam: Alert - Psychiatric Exam Psychiatric exam: Normal Affect - Skin Skin Exam: absent: Cyanosis Assessment and Plan (1) ESRD (end stage renal disease) Assessment & Plan: Patient with end-stage renal disease for 4 years Hypertension Hyperkalemia Volume overloaded History of hyperphosphatemia History of secondary hyperparathyroidism Right pleural effusion with status post thoracocentesis Recommendation Continue hemodialysis MWF with ultrafiltration about 3000 cc as tolerated Phosphorus binder EPO for anemia Status: Acute (2) Hyperkalemia Status: Acute (3) Hypertensive urgency Status: Acute
[2018-11-12 12:10] VITALS: BP 145/104; PULSE 58; RESP 17; TEMP 97.9
--- NOTE | 2018-11-12 12:42 | CP.PCM.DIS ---
Provider - Provider Date of Admission: 11/11/18 00:23 Attending physician: Zoey Starkey MD Consults: 11/10/18 17:03 Nephrology Consult Stat Comment: Consulting Provider: Walter Spence Consulting Physician: Walter Spence Reason for Consult: ESRD, Hyperkalemia 11/11/18 08:57 Social Work Referral Routine Comment: hd patient Physician Instructions: Reason For Exam: hd patient Time Spent in preparation of Discharge (in minutes): 45 Hospital Course - Lab Results Lab Results: Most Recent Lab Values WBC 7.2 K/uL (4.8-10.8) 11/12/18 04:00 RBC 3.63 Mil/uL (4.40-5.90) L 11/12/18 04:00 Hgb 10.3 g/dL (12.0-18.0) L 11/12/18 04:00 Hct 32.7 % (35.0-51.0) L 11/12/18 04:00 MCV 90.1 fl (80.0-94.0) 11/12/18 04:00 MCH 28.2 pg (27.0-31.0) 11/12/18 04:00 MCHC 31.3 g/dL (33.0-37.0) L 11/12/18 04:00 RDW 17.4 % (11.5-14.5) H 11/12/18 04:00 Plt Count 186 K/uL (130-400) 11/12/18 04:00 PT 14.6 Seconds (9.8-13.1) H 11/11/18 12:56 INR 1.3 11/11/18 12:56 Sodium 136 mmol/l (132-148) 11/12/18 04:45 Potassium 4.7 MMOL/L (3.6-5.0) 11/12/18 04:45 Chloride 92 mmol/L (98-107) L 11/12/18 04:45 Carbon Dioxide 29 mmol/L (22-30) 11/12/18 04:45 Anion Gap 20 (10-20) 11/12/18 04:45 BUN 39 mg/dl (9-20) H 11/12/18 04:45 Creatinine 5.3 mg/dl (0.8-1.5) H 11/12/18 04:45 Est GFR ( Amer) 15 11/12/18 04:45 Est GFR (Non-Af Amer) 13 11/12/18 04:45 Random Glucose 88 mg/dL (75-110) 11/12/18 04:45 Calcium 9.9 mg/dL (8.4-10.2) 11/12/18 04:45 Phosphorus 6.5 mg/dl (2.5-4.5) H 11/12/18 04:45 Magnesium 2.2 MG/DL (1.6-2.3) 11/12/18 04:45 Total Bilirubin 0.5 mg/dl (0.2-1.3) 11/12/18 04:45 AST 25 U/L (17-59) 11/12/18 04:45 ALT 16 U/L (21-72) L 11/12/18 04:45 Alkaline Phosphatase 395 U/L (38-126) H 11/12/18 04:45 Lactate Dehydrogenase 383 U/L (313-618) 11/11/18 15:37 Troponin I 0.0160 ng/mL (0.00-0.120) 11/10/18 16:41 Total Protein 7.1 G/DL (6.3-8.2) 11/12/18 04:45 Albumin 3.5 g/dL (3.5-5.0) 11/12/18 04:45 Globulin 3.6 gm/dL (2.2-3.9) 11/12/18 04:45 Albumin/Globulin Ratio 1.0 (1.0-2.1) 11/12/18 04:45 Fluid Source Pleural/thoracentesi 11/11/18 15:00 Fluid Appearance Clear (CLEAR) 11/11/18 15:00 Fluid WBC 188.0 /mm3 (0.0-300.0) 11/11/18 15:00 Fluid RBC 554.0 /mm3 (0.0-0.0) H 11/11/18 15:00 Fluid Tot Cell Count 100 (0-0) H 11/11/18 15:00 Fluid Neutrophils 6.0 % (0-0) H 11/11/18 15:00 Fluid Lymphocytes 77.0 % (0-0) H 11/11/18 15:00 Fld Monocyte/Macrophag 17 % (0-0) H 11/11/18 15:00 Fluid Glucose 106 mg/dL (NONE ESTABLISHED) 11/11/18 16:13 Fluid Total Protein 2.6 g/dL (NONE ESTABLISHED) 11/11/18 16:13 Fluid LDH 223 IU (NONE ESTABLISHED) 11/11/18 14:00 Fluid Comment Straw 11/11/18 15:00 Hep Bs Antigen Negative (NEGATIVE) 11/11/18 09:11 Hep Bs Antibody Positive (NEGATIVE) 11/11/18 09:11 Hep B Core IgM Ab Negative (NEGATIVE) 11/11/18 09:11 Hepatitis C Antibody Negative (NEGATIVE) 11/11/18 09:11 - Hospital Course Hospital Course: 28 y/o M with hx of alcohol abuse, HTN & ESRD on HD was admitted yesterday for further management of uncontrolled HTN, and kidney failure after BP was found to be 217/135 in ED. At that time, nicardipine drip was started, and patient was admitted to ICU. Nicardipine drip was discontinued, and oral medications were started (atenolol & nicardipine). Nephrology was consulted after being found to have hyperkalemia which was secondary to ESRD and hyperphosphatemia most likely secondary to hyperparathyroidism. Hemodialysis was received yesterday. Of note, CXR was performed showing a large right pleural effusion which was confirmed by chest CT. IR was consulted and thoracocentesis was performed. 1100ml of fluid was drained, found to be transudative. Of note, hepatomegaly was seen on CT likely due to his alcohol abuse. This morning, patient was seen and examined at bedside. He was sitting up in the chair, breathing comfortably without any complaints of fever, chills, chest pain or shortness of breath. Patient will be discharged home today. He was extensively counseled on the importance of compliance with medications and scheduled dialysis. Patient expressed understanding and is agreeable. 1.Hypertension (Uncontrolled, resolved at this time) -Continue atenolol 50mg PO MWF -Hydralazine 10mg PO TID -Nifedipine was discontinued because of adverse effect of peripheral edema given his complaints of intermittent facial edema. 2.ESRD (acute on chronic) -Continue dialysis MWF -Sevelamer 800mg PO TID -low salt diet 3. Right-sided pleural effusion (improved) -Small right pleural effusion decreased from initial findings. 4. Hyperkalemia ( resolved at this time) 5. Hyperphosphatemia Discharge Exam - Head Exam Head Exam: NORMAL INSPECTION - Eye Exam Eye Exam: EOMI - ENT Exam ENT Exam: Mucous Membranes Moist - Respiratory Exam Respiratory Exam: Clear to PA & Lateral. absent: Wheezes, Respiratory Distress - Cardiovascular Exam Cardiovascular Exam: REGULAR RHYTHM, +S1, +S2 - GI/Abdominal Exam GI & Abdominal Exam: Normal Bowel Sounds, Soft. absent: Distended, Guarding, Tenderness - Extremities Exam Extremities exam: normal inspection - Neurological Exam Neurological exam: Alert, Oriented x3 - Psychiatric Exam Psychiatric exam: Normal Affect, Normal Mood - Skin Skin Exam: Dry Discharge Plan - Discharge Medications Prescriptions: Atenolol [Tenormin] 50 mg PO MWF #30 tab hydrALAZINE [Apresoline] 10 mg PO TID #90 tab Sevelamer Carbonate [Renvela] 800 mg PO TID #90 tab - Follow Up Plan Condition: FAIR Disposition: HOME/ ROUTINE
== END 2018-11-12 14:10 | disposition home or self-care (01) | DRG 470 ==
LOC: H.ER 15:36 → UNDOADMOB 18:50 → H.ERHOLD 18:50 → OBSVTOIN 11-11 00:23 → H.ERHOLD 11-11 00:23 → H.ICU/CCU 11-11 01:42
PROVIDERS: ADMIT Internal Medicine; ATTEND Internal Medicine
PROC: 5A1D70Z Performance of Urinary Filtration, Intermittent, Less than 6 Hours Per Day (ICD-10-PCS; principal; 2018-11-11)
PROC: 0W993ZZ Drainage of Right Pleural Cavity, Percutaneous Approach (ICD-10-PCS; 2018-11-11)
DX: I12.0 Hypertensive chronic kidney disease with stage 5 chronic kidney disease or end stage renal disease (principal); J94.8 Other specified pleural conditions; N18.6 End stage renal disease; N25.81 Secondary hyperparathyroidism of renal origin; R18.8 Other ascites; E83.39 Other disorders of phosphorus metabolism; E87.5 Hyperkalemia; Z99.2 Dependence on renal dialysis; I16.0 Hypertensive urgency; D63.8 Anemia in other chronic diseases classified elsewhere; F10.10 Alcohol abuse, uncomplicated; J98.11 Atelectasis

== ENCOUNTER 2018-11-30 10:45 | Emergency (ER) | payer OTHER ==
[2018-11-30 10:47] VITALS: BMI 21.9
[2018-11-30 10:48] VITALS: TEMP 97.7; O2SAT 98
--- NOTE | 2018-11-30 11:51 | ED PDOC ---
HPI: Hypertension/Hypotension Time Seen by Provider: 11/30/18 10:56 Chief Complaint (Nursing): High Blood Pressure Chief Complaint (Provider): High blood pressure History Per: Patient History/Exam Limitations: language barrier (Primary Therapist #[id number]) Onset/Duration Of Symptoms: Hrs Current Symptoms Are (Timing): Still Present Additional Complaint(s): Chaka Garza is a 28 year old male, with a past medical history of ESRD on dialysis Friday, Friday and Friday, was referred to the emergency department from dialysis clinic for high blood pressure. On triage, patient's blood pressure was 220/129. Patient states he didn't know until they took his blood pressure. He is compliant with his medications and has not missed recent doses. Patient doesn't know what medication he takes except for Atenolol which he has with him. He denies any chest pain, shortness of breath, dizziness or recent infections. No further medical complaints. PMD: Dr. Mcclellan Past Medical History Reviewed: Historical Data, Nursing Documentation, Vital Signs Vital Signs: Last Vital Signs Temp 97.7 F 11/30/18 10:47 Pulse 58 L 11/30/18 10:47 Resp 16 11/30/18 10:47 BP 220/129 H 11/30/18 10:47 Pulse Ox 98 11/30/18 10:47 - Medical History PMH: HTN, Chronic Kidney Disease Denies: HIV - Surgical History Other surgeries: AV Shunt - Family History Family History: States: Unknown Family Hx - Social History Current smoker - smoking cessation education provided: No Alcohol: Social Drugs: Denies - Home Medications Home Medications: Ambulatory Orders Medication Instructions Recorded RX: Atenolol [Tenormin] 50 mg PO MWF #30 tab 11/12/18 RX: Sevelamer Carbonate [Renvela] 800 mg PO TID #90 tab 11/12/18 RX: hydrALAZINE [Apresoline] 10 mg PO TID #90 tab 11/12/18 - Allergies Allergies/Adverse Reactions: Allergies Allergy/AdvReac Type Severity Reaction Status Date / Time No Known Allergies Allergy Verified 11/30/18 11:02 Review of Systems ROS Statement: Except As Marked, All Systems Reviewed And Found Negative Cardiovascular: Negative for: Chest Pain Respiratory: Negative for: Shortness of Breath Neurological: Negative for: Dizziness Physical Exam - Reviewed Nursing Documentation Reviewed: Yes Vital Signs Reviewed: Yes - Physical Exam Appears: Positive for: No Acute Distress Head Exam: Positive for: ATRAUMATIC, NORMAL INSPECTION, NORMOCEPHALIC Skin: Positive for: Normal Color, Warm, Dry Eye Exam: Positive for: Normal appearance, EOMI, PERRL Neck: Positive for: Normal, Painless ROM, Supple Cardiovascular/Chest: Positive for: Regular Rate, Rhythm. Negative for: Murmur Respiratory: Positive for: Normal Breath Sounds, Other (palpable thrill). Negative for: Respiratory Distress Gastrointestinal/Abdominal: Positive for: Normal Exam, Soft. Negative for: Tenderness Back: Positive for: Normal Inspection. Negative for: L CVA Tenderness, R CVA Tenderness, Vertebral Tenderness Extremity: Positive for: Normal ROM (upper and lower extremities), Other (Left fistula at distal arm, no active bleeding). Negative for: Tenderness, Deformity, Swelling Neurologic/Psych: Positive for: Alert, Oriented. Negative for: Motor/Sensory Deficits - Laboratory Results Result Diagrams: 11/30/18 11:55 11/30/18 11:55 - ECG O2 Sat by Pulse Oximetry: 98 (RA) Pulse Ox Interpretation: Normal Medical Decision Making Medical Decision Making: Time: 10:56 Initial Impression: Work up for high blood pressure, basic labs with Troponin, EKG and chest x-ray. Hydralazine at home dose PO and reevaluate patient. Initial Plan: --EKG --BMP --Troponin I --CBC w/ differential --Apresoline 10 mg PO --Reevaluation Vitals improved with Hydralazine. Labs unremarkable and at baseline. Pt feels comfortable going home and will follow up with PMD in 2 to 4 days. Return parameters discussed. Scribe Attestation: Documented by Jakob Kong, acting as a scribe for Alexa Bullard MD Provider Scribe Attestation: All medical record entries made by the Scribe were at my direction and personally dictated by me. I have reviewed the chart and agree that the record accurately reflects my personal performance of the history, physical exam, medical decision making, and the department course for this patient. I have also personally directed, reviewed, and agree with the discharge instructions and disposition. Disposition - Clinical Impression Clinical Impression: Hypertension - Disposition Referrals: Maicol Mcclellan MD [Staff Provider] - Disposition Time: 13:31 Condition: IMPROVED Additional Instructions: Continue to take medications as prescribed by primary medical doctor. Contact your primary doctor within 24 hours to discuss the possibility of changing medication dosages for better blood pressure control. Return to the emergency department if you develop chest pain, trouble breathing, or other new symptoms. Instructions: High Blood Pressure (DC) Forms: [facility] (Scottish) Print Language: GE[place]GI[place]
[2018-11-30 12:03] VITALS: PULSE 59
[2018-11-30 12:07] LABS: BASO % 0.4 % (0.0-2.0); EOS # 0.2 K/uL (0.0-0.7); EOS % 4.6 % (0.0-4.0); LYMPH # 1.2 K/uL (1.0-4.3); LYMPH % 22.7 % (20.0-40.0); MEAN CELL VOLUME 88.7 fl (80.0-94.0); MEAN CORPUSCULAR HEMOGLOBIN 28.3 pg (27.0-31.0); MEAN PLATELET VOLUME 10.7 fl (7.2-11.7); MONO # 0.6 K/uL (0.0-0.8); MONO % 11.5 % (0.0-10.0); NEUT # 3.2 K/uL (1.8-7.0); NEUT % 60.8 % (50.0-75.0); NRBC % 0.3 % (0.0-0.0); RBC 4.25 Mil/uL (4.40-5.90); RED CELL DISTRIBUTION WIDTH 18.5 % (11.5-14.5); WHITE BLOOD COUNT 5.3 K/uL (4.8-10.8)
[2018-11-30 12:22] LABS: BLOOD UREA NITROGEN 34 mg/dl (9-20); CALCIUM 9.8 mg/dL (8.4-10.2); GFR NON-AFRICAN AMERICAN 14
[2018-11-30 14:45] VITALS: BP 132/80; RESP 18
--- NOTE | 2018-11-30 16:53 | CARD ---
APPROVED REPORT Date of service: 11/30/2018 EKG Measurement Heart [id number] <Conclusion> Sinus bradycardia Baseline artifact precludes proper assessment ST & T wave abnormality, consider inferior ischemia ST & T wave abnormality, consider anterior ischemia Prolonged QT Abnormal ECG
== END 2018-11-30 13:31 | disposition home or self-care (01) ==
LOC: H.ER 10:45
DX: I10 Essential (primary) hypertension (principal); I12.0 Hypertensive chronic kidney disease with stage 5 chronic kidney disease or end stage renal disease; Z99.2 Dependence on renal dialysis; N18.6 End stage renal disease
CPT/HCPCS: 80048; 84484; 85025; 93005; 99285; J0360